=== PATIENT | male | born 1945 | race Caucasian/White ===

== ENCOUNTER 2017-11-29 13:30 | Outpatient (RCR) | payer MEDICARE, OTHER, SELFPAY | END 2017-12-06 23:59 | LOC: DC 13:30 | PROVIDERS: Family Provider Family Medicine; PCP Family Medicine; Visit Provider Orthopaedic Surgery | DX: E66.9 Obesity, unspecified (principal); E10.10 Type 1 diabetes mellitus with ketoacidosis without coma; Z68.42 Body mass index [BMI] 45.0-49.9, adult; Z71.3 Dietary counseling and surveillance | CPT/HCPCS: G0108; G0109 ==

== ENCOUNTER 2018-03-15 16:18 | Outpatient (RCR) | payer MEDICARE, OTHER, SELFPAY | END 2018-04-05 23:59 | LOC: DC 16:18 | PROVIDERS: Family Provider Family Medicine; PCP Family Medicine; Visit Provider Orthopaedic Surgery | DX: E66.9 Obesity, unspecified (principal); E10.10 Type 1 diabetes mellitus with ketoacidosis without coma; Z68.42 Body mass index [BMI] 45.0-49.9, adult; Z71.3 Dietary counseling and surveillance | CPT/HCPCS: G0109 ==

== ENCOUNTER → 2018-03-21 07:01 | Outpatient (CLI) | payer MEDICARE, OTHER, SELFPAY ==
[2018-03-21 10:20] LABS: Hematocrit 42.1 % (40-54); Hemoglobin 13.7 g/dl (13.0-16.5); Mean Corp Hgb Conc 32.5 g/gl (32-36); Mean Corpuscular Hgb 26.8 pg (27.0-32.0); Mean Corpuscular Volume 82.4 fL (80-94); Mean Platelet Vol. 9.5 fl (6.2-12.0); Platelet Count 186 K/mm3 (150-450); RBC Distribution Width CV 13.9 % (11.6-14.6); RBC Distribution Width SD 41.7 fl (35.1-43.9); Red Blood Count 5.11 M/mm3 (4.6-6.2); White Blood Count 6.2 K/mm3 (4.4-11.0)
[2018-03-21 10:26] LABS: Scan Indicated on CBC? Y/N NO
[2018-03-21 10:36] LABS: Protein, Urine (Random) 171.9 mg/dL (<11.9); Protein:Creat Ratio 1868 mg/g CRE (0-200)
[2018-03-21 10:46] LABS: Albumin, Serum 3.8 g/dL (3.2-5.0); BUN 22 mg/dL (7-18); BUN/Creat Ratio 21.4 RATIO (10-20); Calcium,Total 9.4 mg/dL (8.5-10.1); Chloride 100 mmol/L (98-107); Cholesterol 129 mg/dL (200); Creatinine, Serum 1.03 mg/dL (0.70-1.30); EST Glomerular Filtration Rate 76 mL/min (>60); Est Glom Filt Rate - Afr Amer 92 mL/min (>60); Glucose 211 mg/dL (74-106); High Density Lipoprotein 41 mg/dL; Phosphorus 3.4 mg/dL (2.5-4.9); Potassium 4.4 mmol/L (3.5-5.1); Sodium Level 137 mmol/L (136-145); Triglycerides 230 mg/dL; Very Low Density Lipoprotein 46 mg/dL (5-40)
[2018-03-21 10:47] LABS: Hemoglobin A1c 7.8 % (4.2-6.3)
[2018-03-21 11:53] LABS: PTHIN 24.6 pg/mL (18.4-80.1); Vitamin D,25 Hydroxy 37.4 ng/mL (29.95-100.01)
== END ==
PROVIDERS: Family Provider Family Medicine; PCP Family Medicine; Visit Provider Internal Medicine Nephrology
DX: E11.22 Type 2 diabetes mellitus with diabetic chronic kidney disease (principal); N18.2 Chronic kidney disease, stage 2 (mild); E55.9 Vitamin D deficiency, unspecified
CPT/HCPCS: 36415; 80061; 80069; 82306; 82570; 83036; 83735; 83970; 84156; 85027

== ENCOUNTER 2018-04-12 08:00 | Outpatient (RCR) | payer MEDICARE, OTHER, SELFPAY | END 2018-05-05 23:59 | LOC: DC 08:00 | PROVIDERS: Family Provider Family Medicine; PCP Family Medicine; Visit Provider Orthopaedic Surgery | DX: E66.9 Obesity, unspecified (principal); E10.10 Type 1 diabetes mellitus with ketoacidosis without coma; Z68.42 Body mass index [BMI] 45.0-49.9, adult; Z71.3 Dietary counseling and surveillance | CPT/HCPCS: G0109 ==

== ENCOUNTER → 2018-08-24 07:06 | Outpatient (CLI) | payer MEDICARE, OTHER, SELFPAY ==
[2018-08-24 10:52] LABS: Hemoglobin 13.5 g/dl (13.0-16.5); Mean Corp Hgb Conc 31.4 g/gl (32-36); Mean Corpuscular Hgb 26.2 pg (27.0-32.0); Mean Corpuscular Volume 83.3 fL (80-94); Mean Platelet Vol. 9.4 fl (6.2-12.0); Platelet Count 186 K/mm3 (150-450); RBC Distribution Width CV 14.5 % (11.6-14.6); RBC Distribution Width SD 44.2 fl (35.1-43.9); Red Blood Count 5.16 M/mm3 (4.6-6.2); White Blood Count 7.5 K/mm3 (4.4-11.0)
[2018-08-24 10:54] LABS: Scan Indicated on CBC? Y/N NO
[2018-08-24 11:03] LABS: Albumin, Serum 3.6 g/dL (3.2-5.0); BUN 20 mg/dL (7-18); BUN/Creat Ratio 23.6 RATIO (10-20); Calcium,Total 9.4 mg/dL (8.5-10.1); Chloride 101 mmol/L (98-107); Creatinine, Serum 0.85 mg/dL (0.70-1.30); EST Glomerular Filtration Rate 95 mL/min (>60); Est Glom Filt Rate - Afr Amer 115 mL/min (>60); Glucose 156 mg/dL (74-106); Magnesium 1.9 mg/dL (1.6-2.6); Phosphorus 3.6 mg/dL (2.5-4.9); Potassium 4.5 mmol/L (3.5-5.1); Sodium Level 138 mmol/L (136-145)
[2018-08-24 11:07] LABS: Protein, Urine (Random) 170.9 mg/dL (<11.9); Protein:Creat Ratio 2335 mg/g CRE (0-200)
[2018-08-24 11:08] LABS: Hemoglobin A1c 7.6 % (4.2-6.3); PTHIN 27.6 pg/mL (18.4-80.1)
[2018-08-24 11:09] LABS: Vitamin D,25 Hydroxy 36.6 ng/mL (29.95-100.01)
== END ==
PROVIDERS: Family Provider Family Medicine; PCP Family Medicine; Referring Provider Internal Medicine Nephrology; Visit Provider Internal Medicine Nephrology
DX: E11.22 Type 2 diabetes mellitus with diabetic chronic kidney disease (principal); N18.2 Chronic kidney disease, stage 2 (mild); E55.9 Vitamin D deficiency, unspecified; E83.42 Hypomagnesemia
CPT/HCPCS: 36415; 80069; 82306; 82570; 83036; 83735; 83970; 84156; 85027

== ENCOUNTER 2018-12-15 16:10 | Emergency (ER) | payer MEDICARE, OTHER, SELFPAY ==
[2018-12-15 16:10] VITALS: BP 146/67; PULSE 91; RESP 22; TEMP 36.2; O2SAT 93; BMI 41.8
[2018-12-15 16:13] VITALS: TEMP 36.3
--- NOTE | 2018-12-15 16:25 | EKG12_ITS ---
Test Reason : COUGH Blood Pressure : / mmHG Vent. Rate : 094 BPM Atrial Rate : 094 BPM P-R Int : 196 ms QRS Dur : 088 ms QT Int : 338 ms P-R-T Axes : 065 022 080 degrees QTc Int : 422 ms Normal sinus rhythm Normal ECG Confirmed by JAME FREGOSO, PETERSON ([id number]), book or script editor LUCIAN CARVALHO ([id number]) on 12/18/2018 8:31:51 AM Referred By: DC Confirmed By:PETERSON KILGORE MD
--- NOTE | 2018-12-15 16:25 | RAD_ITS ---
STUDY: X-RAY CHEST REASON FOR EXAM: Male, 73 years old. Coughing and congestion for one day TECHNIQUE: AP COMPARISON: None. FINDINGS: There is hyperinflation of the lungs consistent with chronic obstructive lung disease (COPD). There is no demonstrated pleural abnormality. Normal size heart. Normal mediastinum and radha. Normal visualized pulmonary arteries. There is atherosclerotic tortuosity of the aortic arch and descending thoracic aorta. Normal visualized thoracic spine. Normal visualized ribs, clavicles, and shoulders. There is no demonstrated abnormality of the visualized soft tissue structures of the upper abdomen. RAD/Chest 1 View (Portable) IMPRESSION: Nonacute portable x-ray examination of the chest. Suspect COPD. Electronically Signed: Carlito Robison MD at 16:53 EST , Service support ,
[2018-12-15 16:35] VITALS: O2SAT 93; O2SAT 95
[2018-12-15 16:40] VITALS: PULSE 102; RESP 22
[2018-12-15] MEDS: Ipratropium/Albuterol Sulfate 3 ML AMPUL.NEB INHALATION (16:40)
[2018-12-15 16:41] LABS: Absolute Lymphocyte Count 1.87 X10^3/ul (0.83-4.51); Absolute Neutrophil Count 7.4 X10^3/uL (2.0-7.7); Basophil# 0.02 X10^3/uL; Basophil% 0.2 % (0-1); Eosinophil# 0.29 X10^3/uL; Eosinophils% 2.8 % (0-5); Hematocrit 43.6 % (40-54); Hemoglobin 13.8 g/dl (13.0-16.5); Lymphocyte # 1.87 X10^3/ul (4.0); Lymphocyte % 17.9 % (19-41); Mean Corp Hgb Conc 31.7 g/gl (32-36); Mean Corpuscular Hgb 26.9 pg (27.0-32.0); Mean Platelet Vol. 9.2 fl (6.2-12.0); Monocyte# 0.77 X10^3/uL; Monocyte% 7.4 % (0-10); Neutrophil # 7.42 X10^3/uL (2.7-7.7); POSITIVE COUNT NO; POSITIVE DIFFERENTIAL NO; POSITIVE MORPHOLOGY NO; Platelet Count 193 K/mm3 (150-450); RBC Distribution Width CV 13.9 % (11.6-14.6); RBC Distribution Width SD 43.4 fl (35.1-43.9); Red Blood Count 5.13 M/mm3 (4.6-6.2); White Blood Count 10.4 K/mm3 (4.4-11.0)
[2018-12-15 17:03] LABS: Anion Gap 10 (5-15); BUN 27 mg/dL (7-18); Calcium,Total 8.6 mg/dL (8.5-10.1); Chloride 105 mmol/L (98-107); Creatinine, Serum 1.08 mg/dL (0.70-1.30); EST Glomerular Filtration Rate 72 mL/min (>60); Est Glom Filt Rate - Afr Amer 87 mL/min (>60); Estimated Creatinine Clearance 66.82 ml/min; Glucose 193 mg/dL (74-106); Potassium 4.4 mmol/L (3.5-5.1); Sodium Level 138 mmol/L (136-145)
[2018-12-15 17:12] VITALS: BP 153/68; PULSE 93; RESP 14; TEMP 36.9; O2SAT 95
--- NOTE | 2018-12-15 17:17 | ED.VISSUMM ---
- ER Visit Summary Date of Service: 12/15/18 Chief Complaint: Cough History of Present Illness: The patient is a 73 M with cough that started today. Associated with congestion and some sputum. He has some mild shortness of breath. He is a former smoker and has a history of bronchitis. He has required hospitalization for bronchitis in the past. He also has diabetes, hyperlipidemia, sleep apnea, and other noncontributory chronic disease. He is not currently on prednisone or antibiotics. Physical Examination: Afebrile and vital signs unremarkable. Alert and oriented. No acute distress. Sitting, moving, breathing comfortably. Heart regular rate and rhythm. Lungs show diminished sounds throughout all ordaz. Extremities nontender with no edema. Skin appears normal. Test Results: X-ray showed chronic changes, COPD. EKG showed sinus rhythm at a rate of 94. CBC normal. Glucose 193 and BUN 27. Troponin normal. Emergency Department Course and Treatment: Patient has signs and symptoms of bronchitis. Workup is unremarkable. We will treat as bronchitis. Prescription for doxycycline. Follow-up with primary care for recheck. Return right away if worse. Treatment Plan: As above Disposition: Discharge Impression: 1. Acute bronchitis This note was generated with [employer] software. It may contain incorrect words, spelling, and punctuation that were not noted in review of the chart prior to signing ED Disposition - Plan for ED Patient: Referrals: Getachew Lowery MD [Primary Care Provider] -
--- NOTE | 2018-12-15 17:19 | ED.DEP ---
ED Disposition - Plan for ED Patient: Instructions: ED COPD Flare Prescriptions: Levofloxacin [Levaquin] 750 mg PO DAILY #5 tab Levofloxacin [Levaquin] 750 mg PO DAILY #5 tab Referrals: Getachew Lowery MD [Primary Care Provider] -
[2018-12-15 17:53] VITALS: PULSE 92; RESP 17; O2SAT 93
== END 2018-12-15 17:54 | disposition home or self-care (01) ==
PROVIDERS: Emergency Provider Emergency Medicine; Family Provider Family Medicine; PCP Family Medicine
DX: J44.0 Chronic obstructive pulmonary disease with (acute) lower respiratory infection (principal); J20.9 Acute bronchitis, unspecified; E11.9 Type 2 diabetes mellitus without complications; E78.5 Hyperlipidemia, unspecified; N40.0 Benign prostatic hyperplasia without lower urinary tract symptoms; G47.33 Obstructive sleep apnea (adult) (pediatric); K21.9 Gastro-esophageal reflux disease without esophagitis; Z79.82 Long term (current) use of aspirin; Z79.4 Long term (current) use of insulin; Z79.899 Other long term (current) drug therapy; Z87.891 Personal history of nicotine dependence
CPT/HCPCS: 71045; 80048; 84484; 85025; 93005; 94640; 99284; A4216

== ENCOUNTER → 2019-02-27 07:04 | Outpatient (CLI) | payer MEDICARE, OTHER, SELFPAY ==
[2019-02-27 10:32] LABS: Hematocrit 43.8 % (40-54); Hemoglobin 14.1 g/dl (13.0-16.5); Mean Corp Hgb Conc 32.2 g/gl (32-36); Mean Corpuscular Volume 83.7 fL (80-94); Mean Platelet Vol. 9.6 fl (6.2-12.0); Platelet Count 200 K/mm3 (150-450); RBC Distribution Width CV 13.9 % (11.6-14.6); RBC Distribution Width SD 42.7 fl (35.1-43.9); Red Blood Count 5.23 M/mm3 (4.6-6.2); White Blood Count 7.3 K/mm3 (4.4-11.0)
[2019-02-27 10:36] LABS: Scan Indicated on CBC? Y/N NO
[2019-02-27 10:42] LABS: Albumin, Serum 3.6 g/dL (3.2-5.0); BUN 18 mg/dL (7-18); Calcium,Total 9.5 mg/dL (8.5-10.1); Chloride 100 mmol/L (98-107); Creatinine, Serum 0.86 mg/dL (0.70-1.30); EST Glomerular Filtration Rate 93 mL/min (>60); Est Glom Filt Rate - Afr Amer 113 mL/min (>60); Glucose 179 mg/dL (74-106); Phosphorus 3.5 mg/dL (2.5-4.9); Potassium 4.4 mmol/L (3.5-5.1); Sodium Level 138 mmol/L (136-145)
[2019-02-27 10:49] LABS: Cholesterol 144 mg/dL (200); High Density Lipoprotein 44 mg/dL; Triglycerides 265 mg/dL; Very Low Density Lipoprotein 53 mg/dL (5-40)
[2019-02-27 10:54] LABS: Hemoglobin A1c 7.7 % (4.2-6.3)
[2019-02-27 10:57] LABS: Protein, Urine (Random) 512.2 mg/dL (<11.9); Protein:Creat Ratio 4573 mg/g CRE (0-200)
== END ==
PROVIDERS: Family Provider Family Medicine; PCP Family Medicine; Referring Provider Internal Medicine Nephrology; Visit Provider Internal Medicine Nephrology
DX: I12.9 Hypertensive chronic kidney disease with stage 1 through stage 4 chronic kidney disease, or unspecified chronic kidney disease (principal); N18.2 Chronic kidney disease, stage 2 (mild); E11.22 Type 2 diabetes mellitus with diabetic chronic kidney disease; E78.5 Hyperlipidemia, unspecified
CPT/HCPCS: 36415; 80061; 80069; 82570; 83036; 84156; 85027

== ENCOUNTER → 2019-09-04 07:05 | Outpatient (CLI) | payer MEDICARE, OTHER, SELFPAY ==
[2019-09-04 09:54] LABS: Absolute Lymphocyte Count 1.46 X10^3/uL (0.83-4.51); Absolute Neutrophil Count 5.6 X10^3/uL (2.0-7.7); Basophil# 0.07 X10^3/uL; Basophil% 0.9 % (0-1); Eosinophil# 0.32 X10^3/uL; Eosinophils% 3.9 % (0-5); Hematocrit 45.3 % (40-54); Hemoglobin 14.3 g/dL (13.0-16.5); Lymphocyte # 1.46 X10^3/ul (4.0); Lymphocyte % 17.8 % (19-41); Mean Corp Hgb Conc 31.6 g/dL (32-36); Mean Corpuscular Hgb 26.7 pg (27.0-32.0); Mean Corpuscular Volume 84.7 fL (80-94); Mean Platelet Vol. 9.4 fl (6.2-12.0); Monocyte# 0.63 X10^3/uL; Monocyte% 7.7 % (0-10); NRBC Flagged by Analyzer 0 % (0-5); Neutrophil # 5.59 X10^3/uL (2.7-7.7); Neutrophil % 68.4 % (47-70); Platelet Count 211 K/mm3 (150-450); RBC Distribution Width CV 13.7 % (11.6-14.6); RBC Distribution Width SD 42.1 fl (35.1-43.9); Red Blood Count 5.35 M/mm3 (4.6-6.2); White Blood Count 8.2 K/mm3 (4.4-11.0)
[2019-09-04 10:27] LABS: Vitamin D,25 Hydroxy 46.3 ng/mL (29.95-100.01)
[2019-09-04 10:28] LABS: PTHIN 28.3 pg/mL (18.4-80.1)
[2019-09-04 10:29] LABS: Albumin, Serum 3.4 g/dL (3.2-5.0); BUN 22 mg/dL (7-18); BUN/Creat Ratio 25.2 RATIO (10-20); Calcium,Total 9.4 mg/dL (8.5-10.1); Chloride 100 mmol/L (98-107); Creatinine, Serum 0.87 mg/dL (0.70-1.30); EST Glomerular Filtration Rate 91 mL/min (>60); Est Glom Filt Rate - Afr Amer 110 mL/min (>60); Glucose 214 mg/dL (74-106); Magnesium 1.9 mg/dL (1.6-2.6); Phosphorus 3.6 mg/dL (2.5-4.9); Sodium Level 137 mmol/L (136-145)
[2019-09-04 10:45] LABS: Protein, Urine (Random) 524.2 mg/dL (<11.9); Protein:Creat Ratio 4809 mg/g CRE (0-200)
== END ==
PROVIDERS: Family Provider Family Medicine; PCP Family Medicine; Referring Provider Internal Medicine Nephrology; Visit Provider Internal Medicine Nephrology
DX: N18.2 Chronic kidney disease, stage 2 (mild) (principal); E55.9 Vitamin D deficiency, unspecified; Z13.0 Encounter for screening for diseases of the blood and blood-forming organs and certain disorders involving the immune mechanism
CPT/HCPCS: 36415; 80069; 82306; 82570; 83735; 83970; 84156; 85025

== ENCOUNTER → 2019-10-01 07:01 | Outpatient (CLI) | payer MEDICARE, OTHER, SELFPAY ==
[2019-10-01 10:40] LABS: AST(SGOT) 22 U/L (15-37); Alanine Aminotransfer ALT/SGPT 50 U/L (16-61); Albumin, Serum 3.7 g/dL (3.2-5.0); Alkaline Phosphatase 77 U/L (45-117); Anion Gap 8 (5-15); BUN 24 mg/dL (7-18); BUN/Creat Ratio 26.5 RATIO (10-20); Calcium,Total 9.5 mg/dL (8.5-10.1); Chloride 103 mmol/L (98-107); Cholesterol 141 mg/dL (200); Creatinine, Serum 0.91 mg/dL (0.70-1.30); EST Glomerular Filtration Rate 87 mL/min (>60); Est Glom Filt Rate - Afr Amer 106 mL/min (>60); Globulin 3.8 g/dL (2.2-4.2); Glucose 190 mg/dL (74-106); High Density Lipoprotein 46 mg/dL; Potassium 4.4 mmol/L (3.5-5.1); Protein, Total 7.5 g/dL (6.4-8.2); Sodium Level 138 mmol/L (136-145); T4 Free Direct 1.14 ng/dL (0.76-1.46); Thyroid Stim Hormone (TSH) 1.21 uIU/mL (0.358-3.74); Triglycerides 247 mg/dL; Very Low Density Lipoprotein 49 mg/dL (5-40)
[2019-10-01 10:41] LABS: Vitamin D,25 Hydroxy 47.9 ng/mL (29.95-100.01)
[2019-10-03 11:20] LABS: Anti-Thyroglobulin AB < 1.0 IU/mL (0.0-0.9); Thyroglobulin, Serum Qt. 23.4 ng/mL (1.4-29.2); Thyroid Peroxidase AB 10 IU/mL (0-34)
== END ==
PROVIDERS: Family Provider Family Medicine; PCP Family Medicine; Referring Provider Family Medicine; Visit Provider Family Medicine
DX: E11.9 Type 2 diabetes mellitus without complications (principal); I10 Essential (primary) hypertension; E78.5 Hyperlipidemia, unspecified; E01.0 Iodine-deficiency related diffuse (endemic) goiter; E55.9 Vitamin D deficiency, unspecified; E66.01 Morbid (severe) obesity due to excess calories
CPT/HCPCS: 36415; 80053; 80061; 82306; 83036; 84432; 84439; 84443; 86376; 86800

== ENCOUNTER → 2019-10-14 11:50 | Outpatient (CLI) | payer MEDICARE, OTHER, SELFPAY ==
--- NOTE | 2019-10-14 11:53 | US_ITS ---
STUDY: THYROID ULTRASOUND REASON FOR EXAM: Male, 74 years old. Thyromegaly. TECHNIQUE: Ultrasound evaluation of the thyroid was performed with real-time and static shi-scale imaging. COMPARISON: None. FINDINGS: RIGHT LOBE: The right lobe of the thyroid gland measures 4.8 cm x 2.8 cm x 2.0 cm. There is a homogeneous echotexture. There is a 5 mm x 6 mm x 5 mm cyst in the mid portion of the right lobe. Adjacent to this, there is a 1 cm x 1 cm x 1 cm cyst. LEFT LOBE: The left lobe of the thyroid gland measures 4.4 cm x 1.7 cm x 1.9 cm. There is a homogeneous echotexture. There is a 7 mm x 6 mm x 3 mm cyst with the low-level echoes within it. There is also evidence of a 6 mm x 8 mm x 5 mm well-defined hypoechoic nodule in the midportion of the left lobe. ISTHMUS: The isthmus measures 3.0 mm. The regional lymph nodes are normal. US/Thyroid IMPRESSION: 2 cysts in the right lobe of the thyroid. 6 mm x 8 mm x 5 mm hypoechoic solid nodule in the midportion of the left lobe as well as a small cyst. Electronically Signed: Stanley Mcdonnell, at 9:24 EST , Service support ,
--- NOTE | 2019-10-14 12:25 | ECHOCS_ITS ---
Reason For Study: Murmur Procedure This was a 2D Doppler, Color Flow transthoracic echocardiogram. The study was technically difficult. Contrast injection was performed. Exam performed in department. Left Ventricle Normal LV size. Left ventricular systolic function is normal. The estimated ejection fraction is 65 %. Stage 1 diastolic dysfunction. No regional wall motion abnormalities noted. Right Ventricle Normal RV size. Normal systolic function. Atria Normal left atrium. Normal right atrium. Mitral Valve Normal mitral valve. Tricuspid Valve Normal tricuspid valve. Aortic Valve Trisinus/trileaflet aortic valve. Moderate focal aortic valve calcification. Peak aortic valve gradient 71 mmHg. Mean aortic valve gradient 45 mmHg. Pulmonic Valve The pulmonic valve is not well visualized. Great Vessels Normal aortic root. The pulmonary artery is normal size. Normal inferior vena cava. Pericardium/Pleural No pericardial effusion. Medication Diluted definity 4ml given slow IV push to enhance endocardial definition. MMode/2D Measurements & Calculations LVIDd: 4.4 cm IVSd: 1.7 cm LVOT diam: 2.0 cm LVIDs: 2.9 cm LVPWd: 1.6 cm RVDd: 3.9 cm FS: 34.0 % LVOT area: 3.1 cm2 Ao root diam: 3.0 cm LAV(MOD-bp): 29.8 ml LVAd ap4: 35.4 cm2 LAV(MOD-bp) Indexed: 11.8 ml/m2 EDV(MOD-sp4): 110.7 ml LAV(MOD-sp2): 30.3 ml EDV(sp4-el): 111.9 ml LAV(MOD-sp4): 28.6 ml LVAs ap4: 17.2 cm2 ESV(MOD-sp4): 36.7 ml ESV(sp4-el): 36.4 ml EF(MOD-sp4): 66.9 % EF(sp4-el): 67.5 % SV(MOD-sp4): 74.1 ml SV(sp4-el): 75.5 ml LA A4 area: 13.4 cm2 LA dimension(2D): 3.4 cm RA A4 area: 12.5 cm2 Doppler Measurements & Calculations MV E max rik: 68.6 cm/sec Lat Peak E' Rik: 5.9 cm/sec Med Peak E' Rik: 5.6 cm/sec MV A max rik: 104.7 cm/sec E/E' lat: 11.6 E/E' med: 12.2 MV E/A: 0.65 Ao V2 max: 422.6 cm/sec AI max rik: 387.0 cm/sec LV V1 max: 133.0 cm/sec Ao max P.4 mmHg AI max P.9 mmHg LV V1 max P.1 mmHg Ao V2 mean: 319.2 cm/sec LV V1 mean P.3 mmHg Ao mean P.6 mmHg AI dec slope: 193.7 cm/sec2 LV V1 mean: 99.9 cm/sec Ao V2 VTI: 74.3 cm AI P1/2t: 585.1 msec LV V1 VTI: 23.9 cm KOKO(I,D): 1.00 cm2 KOKO(V,D): 0.97 cm2 SV(LVOT): 73.9 ml Interpretation Summary Normal LV size. Left ventricular systolic function is normal. The estimated ejection fraction is 65 %. Moderate focal aortic valve calcification. Mean aortic valve gradient 45 mmHg. Stage 1 diastolic dysfunction. Contrast injection was performed. Ordering Physician: Getachew Watson Referring Physician: Getachew Watson Performed By: Yvonne Bearden RDCS, RVT
--- NOTE | 2019-10-14 12:25 | CDU_ITS ---
Reason For Study: CAROTID STENOSIS Rt. Velocities/BP Lt. Velocities/BP Prox CCA 102.1/12.6 cm/sec. Prox CCA 87.4/12.3 cm/sec. Mid CCA 85.8/10.9 cm/sec. Mid CCA 85.5/12.9 cm/sec. Dist CCA 76.0/12.2 cm/sec. Dist CCA 94.2/26.0 cm/sec. Prox ICA 80.9/22.0 cm/sec. Prox ICA 72.8/14.8 cm/sec. Mid ICA 91.6/25.3 cm/sec. Mid ICA 62.7/16.3 cm/sec. Dist ICA 87.4/24.0 cm/sec. Dist ICA 68.5/20.6 cm/sec. Rt. ICA/CCA = 91.6/102.1=0.9. Lt. ICA/CCA = 72.8/94.2=0.8. Prox ECA 194.5/5.7 cm/sec. Prox ECA 110.1/0.0 cm/sec. Rt. Vert. 62.7/12.5 cm/sec. Lt. Vert. 48.1/9.4 cm/sec. Right Extracranial There is intimal thickening but no significant atherosclerotic plaque noted in the right common carotid artery. There is heterogeneous, irregular atherosclerotic plaque noted in the right internal carotid artery. There is heterogeneous, smooth atherosclerotic plaque noted in the right external carotid artery. Antegrade flow is noted in the right vertebral artery. There is heterogeneous, irregular atherosclerotic plaque noted in the right bulb. Left Extracranial There is intimal thickening but no significant atherosclerotic plaque noted in the left common carotid artery. There is heterogeneous, smooth atherosclerotic plaque noted in the left internal carotid artery. The distal left internal carotid artery is not well visualized. There is no significant atherosclerotic plaque noted in the left external carotid artery. Antegrade flow is noted in the left vertebral artery. There is heterogeneous, irregular atherosclerotic plaque noted in the left bulb. Procedure Carotid Duplex [id number]. The study was technically difficult. PT had difficulty being still for exam with sinus drainage. Interpretation Summary Mild (<50%) stenosis right extracranial internal carotid. Mild (<50%) stenosis left extracranial internal carotid. Flow within the vertebral arteries is antegrade bilaterally. Heterogeneous, irregular atherosclerotic plaque is noted in the carotid bulbs bilaterally, which does not appear to be hemodynamically significant. Ordering Physician: Getachew Watson Referring Physician: Getachew Watson Performed By: Funmilayo Garcia, RUTH, RVT
== END ==
PROVIDERS: Family Provider Family Medicine; PCP Family Medicine; Referring Provider Family Medicine; Visit Provider Family Medicine
DX: I65.23 Occlusion and stenosis of bilateral carotid arteries (principal); E01.0 Iodine-deficiency related diffuse (endemic) goiter; R01.1 Cardiac murmur, unspecified
CPT/HCPCS: 76536; 93306; 93880; Q9957; A4216; C8929

== ENCOUNTER → 2019-10-17 13:36 | Outpatient (CLI) | payer MEDICARE, OTHER, SELFPAY ==
--- NOTE | 2019-10-17 13:37 | US_ITS ---
STUDY: ULTRASOUND - URINARY BLADDER REASON FOR EXAM: Male, 74 years old. Urinary retention. TECHNIQUE: Ultrasound evaluation of the urinary bladder was performed with real-time and static shi-scale imaging. COMPARISON: None. FINDINGS: There is no right UVJ calculus. There is a visualized right ureteral jet. There is no left UVJ calculus. There is a visualized left ureteral jet. The distended volume of the urinary bladder is 206 ml. The empty volume of the urinary bladder is 28 ml. The bladder wall measures 5 mm. There is no demonstrated bladder wall mass lesion. There are no demonstrated bladder calculi. US/Post Void Residual Bladder IMPRESSION: Post void residual of 28 mL. Mild bladder wall thickening. Electronically Signed: Gita Taveras MD at 0:04 EST , Service support ,
== END ==
PROVIDERS: Family Provider Family Medicine; PCP Family Medicine; Referring Provider Family Medicine; Visit Provider Family Medicine
DX: R33.9 Retention of urine, unspecified (principal)
CPT/HCPCS: 51798

== ENCOUNTER → 2020-01-17 07:06 | Outpatient (CLI) | payer MEDICARE, OTHER, SELFPAY ==
[2020-01-17 10:04] LABS: Absolute Lymphocyte Count 1.79 X10^3/uL (0.83-4.51); Absolute Neutrophil Count 4.5 X10^3/uL (2.0-7.7); Basophil# 0.05 X10^3/uL; Basophil% 0.7 % (0-1); Eosinophil# 0.27 X10^3/uL; Eosinophils% 3.7 % (0-5); Hematocrit 44.9 % (40-54); Lymphocyte # 1.79 X10^3/ul (4.0); Lymphocyte % 24.3 % (19-41); Mean Corp Hgb Conc 31.2 g/dL (32-36); Mean Corpuscular Hgb 26.5 pg (27.0-32.0); Mean Platelet Vol. 9.9 fl (6.2-12.0); Monocyte% 9.5 % (0-10); NRBC Flagged by Analyzer 0 % (0-5); Neutrophil # 4.48 X10^3/uL (2.7-7.7); Neutrophil % 60.8 % (47-70); Platelet Count 228 K/mm3 (150-450); RBC Distribution Width CV 13.9 % (11.6-14.6); RBC Distribution Width SD 42.9 fl (35.1-43.9); Red Blood Count 5.28 M/mm3 (4.6-6.2); White Blood Count 7.4 K/mm3 (4.4-11.0)
[2020-01-17 10:45] LABS: Hemoglobin A1c 7.8 % (4.2-6.3)
[2020-01-17 11:13] LABS: ALB/GLOB Ratio 0.9 RATIO (0.9-2.4); AST(SGOT) 31 U/L (15-37); Alanine Aminotransfer ALT/SGPT 63 U/L (16-61); Albumin, Serum 3.6 g/dL (3.2-5.0); Alkaline Phosphatase 72 U/L (45-117); Anion Gap 7 (5-15); BUN 20 mg/dL (7-18); BUN/Creat Ratio 22.5 RATIO (10-20); Calcium,Total 9.8 mg/dL (8.5-10.1); Chloride 102 mmol/L (98-107); Cholesterol 142 mg/dL (200); Creatinine, Serum 0.89 mg/dL (0.70-1.30); EST Glomerular Filtration Rate 89 mL/min (>60); Est Glom Filt Rate - Afr Amer 108 mL/min (>60); Glucose 145 mg/dL (74-106); High Density Lipoprotein 41 mg/dL; Magnesium 1.9 mg/dL (1.6-2.6); Potassium 4.4 mmol/L (3.5-5.1); Protein, Total 7.6 g/dL (6.4-8.2); Sodium Level 136 mmol/L (136-145); Triglycerides 246 mg/dL; Very Low Density Lipoprotein 49 mg/dL (5-40)
[2020-01-18 08:21] LABS: Vitamin D,25 Hydroxy 54.9 ng/mL
== END ==
PROVIDERS: PCP Family Medicine; Referring Provider Family Medicine; Visit Provider Family Medicine
DX: E11.9 Type 2 diabetes mellitus without complications (principal); I10 Essential (primary) hypertension; E78.5 Hyperlipidemia, unspecified; E83.42 Hypomagnesemia; E55.9 Vitamin D deficiency, unspecified
CPT/HCPCS: 36415; 80053; 80061; 82306; 83036; 83735; 85025

== ENCOUNTER → 2020-04-21 07:01 | Outpatient (CLI) | payer MEDICARE, OTHER, SELFPAY ==
[2020-02-08 10:29] VITALS: BMI 41.8
[2020-04-21 10:09] LABS: Hematocrit 44.7 % (40-54); Hemoglobin 13.9 g/dL (13.0-16.5); Mean Corp Hgb Conc 31.1 g/dL (32-36); Mean Corpuscular Hgb 26.7 pg (27.0-32.0); Mean Corpuscular Volume 85.8 fL (80-94); Mean Platelet Vol. 9.7 fl (6.2-12.0); Platelet Count 243 K/mm3 (150-450); RBC Distribution Width CV 14.5 % (11.6-14.6); RBC Distribution Width SD 45.1 fl (35.1-43.9); Red Blood Count 5.21 M/mm3 (4.6-6.2); White Blood Count 8.8 K/mm3 (4.4-11.0)
[2020-04-21 10:22] LABS: PTHIN 13.9 pg/mL (18.4-80.1)
[2020-04-21 10:23] LABS: Albumin, Serum 3.7 g/dL (3.2-5.0); BUN 34 mg/dL (7-18); BUN/Creat Ratio 32.7 RATIO (10-20); Calcium,Total 9.6 mg/dL (8.5-10.1); Chloride 106 mmol/L (98-107); Creatinine, Serum 1.04 mg/dL (0.70-1.30); EST Glomerular Filtration Rate 75 mL/min (>60); Est Glom Filt Rate - Afr Amer 90 mL/min (>60); Glucose 160 mg/dL (74-106); Phosphorus 4.4 mg/dL (2.5-4.9); Potassium 4.2 mmol/L (3.5-5.1); Sodium Level 138 mmol/L (136-145)
[2020-04-21 10:26] LABS: Vitamin D,25 Hydroxy 52.9 ng/mL
[2020-04-21 10:35] LABS: Protein, Urine (Random) 67.1 mg/dL (<11.9); Protein:Creat Ratio 996 mg/g CRE (0-200)
== END ==
PROVIDERS: PCP Family Medicine; Referring Provider Internal Medicine Nephrology; Visit Provider Internal Medicine Nephrology
DX: N18.2 Chronic kidney disease, stage 2 (mild) (principal); E55.9 Vitamin D deficiency, unspecified; E83.42 Hypomagnesemia; Z13.0 Encounter for screening for diseases of the blood and blood-forming organs and certain disorders involving the immune mechanism
CPT/HCPCS: 36415; 80069; 82306; 82570; 83735; 83970; 84156; 85027

== ENCOUNTER → 2020-05-19 07:07 | Outpatient (CLI) | payer MEDICARE, OTHER, SELFPAY ==
[2020-02-08 10:29] VITALS: BMI 41.8
[2020-05-19 09:54] LABS: Absolute Lymphocyte Count 1.66 X10^3/uL (0.83-4.51); Absolute Neutrophil Count 5.3 X10^3/uL (2.0-7.7); Basophil# 0.04 X10^3/uL; Basophil% 0.5 % (0-1); Eosinophil# 0.28 X10^3/uL; Eosinophils% 3.5 % (0-5); Hematocrit 44.8 % (40-54); Hemoglobin 13.8 g/dL (13.0-16.5); Lymphocyte # 1.66 X10^3/ul (4.0); Lymphocyte % 20.6 % (19-41); Mean Corp Hgb Conc 30.8 g/dL (32-36); Mean Corpuscular Hgb 26.6 pg (27.0-32.0); Mean Corpuscular Volume 86.3 fL (80-94); Mean Platelet Vol. 9.9 fl (6.2-12.0); Monocyte# 0.63 X10^3/uL; Monocyte% 7.8 % (0-10); NRBC Flagged by Analyzer 0 % (0-5); Neutrophil # 5.33 X10^3/uL (2.7-7.7); Neutrophil % 66.1 % (47-70); Platelet Count 228 K/mm3 (150-450); RBC Distribution Width SD 43.8 fl (35.1-43.9); Red Blood Count 5.19 M/mm3 (4.6-6.2); White Blood Count 8.1 K/mm3 (4.4-11.0)
[2020-05-19 10:07] LABS: Albumin, Serum 3.6 g/dL (3.2-5.0); BUN 19 mg/dL (7-18); BUN/Creat Ratio 20.3 RATIO (10-20); Creatinine, Serum 0.94 mg/dL (0.70-1.30); EST Glomerular Filtration Rate 84 mL/min (>60); Est Glom Filt Rate - Afr Amer 102 mL/min (>60); Glucose 166 mg/dL (74-106); Protein, Total 7.6 g/dL (6.4-8.2); Vitamin D,25 Hydroxy 57.1 ng/mL
[2020-05-19 10:08] LABS: ALB/GLOB Ratio 0.9 RATIO (0.9-2.4); AST(SGOT) 28 U/L (15-37); Alanine Aminotransfer ALT/SGPT 61 U/L (16-61); Alkaline Phosphatase 68 U/L (45-117); Anion Gap 9 (5-15); Calcium,Total 9.4 mg/dL (8.5-10.1); Chloride 102 mmol/L (98-107); Cholesterol 135 mg/dL (200); High Density Lipoprotein 42 mg/dL; Potassium 4.1 mmol/L (3.5-5.1); Sodium Level 137 mmol/L (136-145); Triglycerides 228 mg/dL; Very Low Density Lipoprotein 46 mg/dL (5-40)
[2020-05-19 11:00] LABS: Microalbumin:Creatinine Ratio 1405.3 mg/g CRE (<30 mg/g CRE)
[2020-05-19 11:52] LABS: Hemoglobin A1c 6.8 % (3.8-5.6)
== END ==
PROVIDERS: PCP Family Medicine; Referring Provider Family Medicine; Visit Provider Family Medicine
DX: E11.9 Type 2 diabetes mellitus without complications (principal); E78.5 Hyperlipidemia, unspecified; E83.42 Hypomagnesemia; E55.9 Vitamin D deficiency, unspecified
CPT/HCPCS: 36415; 80053; 80061; 82043; 82306; 82570; 83036; 83735; 85025

== ENCOUNTER → 2020-09-01 | Outpatient (CLI) | payer MEDICARE, OTHER, SELFPAY ==
[2020-02-08 10:29] VITALS: BMI 41.8
== END | disposition home or self-care (01) ==
PROVIDERS: Visit Provider Family Medicine
DX: B34.9 Viral infection, unspecified (principal)
CPT/HCPCS: 87635; U0003

== ENCOUNTER → 2020-10-13 07:04 | Outpatient (CLI) | payer MEDICARE, OTHER, SELFPAY ==
[2020-02-08 10:29] VITALS: BMI 41.8
[2020-10-13 09:44] LABS: Absolute Lymphocyte Count 1.53 X10^3/uL (0.83-4.51); Absolute Neutrophil Count 5.4 X10^3/uL (2.0-7.7); Basophil# 0.05 X10^3/uL; Basophil% 0.6 % (0-1); Eosinophil# 0.22 X10^3/uL; Eosinophils% 2.8 % (0-5); Hematocrit 44.8 % (40-54); Lymphocyte # 1.53 X10^3/ul (4.0); Lymphocyte % 19.4 % (19-41); Mean Corp Hgb Conc 31.3 g/dL (32-36); Mean Corpuscular Hgb 26.9 pg (27.0-32.0); Mean Corpuscular Volume 86.2 fL (80-94); Mean Platelet Vol. 9.6 fl (6.2-12.0); Monocyte# 0.67 X10^3/uL; Monocyte% 8.5 % (0-10); NRBC Flagged by Analyzer 0 % (0-5); Neutrophil # 5.36 X10^3/uL (2.7-7.7); Neutrophil % 67.9 % (47-70); Platelet Count 216 K/mm3 (150-450); RBC Distribution Width CV 13.7 % (11.6-14.6); RBC Distribution Width SD 43.6 fl (35.1-43.9); White Blood Count 7.9 K/mm3 (4.4-11.0)
[2020-10-13 10:03] LABS: Hemoglobin A1c 6.7 % (3.8-5.6)
[2020-10-13 10:24] LABS: ALB/GLOB Ratio 0.9 RATIO (0.9-2.4); AST(SGOT) 20 U/L (15-37); Alanine Aminotransfer ALT/SGPT 48 U/L (16-61); Albumin, Serum 3.5 g/dL (3.2-5.0); Alkaline Phosphatase 66 U/L (45-117); Anion Gap 5 (5-15); BUN 20 mg/dL (7-18); BUN/Creat Ratio 21.7 RATIO (10-20); Calcium,Total 8.9 mg/dL (8.5-10.1); Chloride 104 mmol/L (98-107); Cholesterol 141 mg/dL (200); Creatinine, Serum 0.92 mg/dL (0.70-1.30); EST Glomerular Filtration Rate 86 mL/min (>60); Est Glom Filt Rate - Afr Amer 104 mL/min (>60); Glucose 144 mg/dL (74-106); High Density Lipoprotein 43 mg/dL; Magnesium 2.1 mg/dL (1.6-2.6); PSA,Total - Annual Screen 0.07 ng/mL (0.00-4.00); Phosphorus 3.4 mg/dL (2.5-4.9); Potassium 4.5 mmol/L (3.5-5.1); Protein, Total 7.5 g/dL (6.4-8.2); Sodium Level 138 mmol/L (136-145); Triglycerides 252 mg/dL; Very Low Density Lipoprotein 50 mg/dL (5-40)
[2020-10-13 10:25] LABS: Microalbumin:Creatinine Ratio 1854.8 mg/g CRE (<30 mg/g CRE); Protein, Urine (Random) 242.2 mg/dL (<11.9); Protein:Creat Ratio 1953 mg/g CRE (0-200)
[2020-10-13 11:40] LABS: Vitamin D,25 Hydroxy 37.7 ng/mL
[2020-10-13 12:31] LABS: PTHIN 52.9 pg/mL (18.4-80.1)
== END ==
PROVIDERS: PCP Family Medicine; Referring Provider Family Medicine; Visit Provider Family Medicine
DX: I12.9 Hypertensive chronic kidney disease with stage 1 through stage 4 chronic kidney disease, or unspecified chronic kidney disease (principal); E11.22 Type 2 diabetes mellitus with diabetic chronic kidney disease; N18.2 Chronic kidney disease, stage 2 (mild); E78.5 Hyperlipidemia, unspecified; E83.42 Hypomagnesemia; E55.9 Vitamin D deficiency, unspecified; Z12.5 Encounter for screening for malignant neoplasm of prostate
CPT/HCPCS: 36415; 80053; 80061; 82043; 82306; 82570; 83036; 83735; 83970; 84100; 84153; 84156; 85025; G0103

== ENCOUNTER → 2020-10-26 08:59 | Outpatient (CLI) | payer MEDICARE, OTHER, SELFPAY ==
[2020-02-08 10:29] VITALS: BMI 41.8
--- NOTE | 2020-10-26 09:02 | RAD_ITS ---
STUDY: X-RAY - RIGHT KNEE REASON FOR EXAM: Male, 75 years old. Knee pain mostly in the left TECHNIQUE: 4 view(s) of the knee. COMPARISON: None. FINDINGS: Normal visualized distal femur. Normal visualized proximal tibia and fibula. Normal proximal tibiofibular articulation. There is mild degenerative arthrosis of the medial femorotibial compartment. Normal lateral femorotibial compartment. Normal patellofemoral articulation. Small joint effusion. Atherosclerotic vascular calcification. Calcification of the medial meniscus. RAD/Knee 3 Views IMPRESSION: Degenerative arthrosis. Electronically Signed: Stanley Mcdonnell, at 15:52 EST , Service support ,
--- NOTE | 2020-10-26 09:02 | RAD_ITS ---
STUDY: X-RAY - LEFT KNEE REASON FOR EXAM: Male, 75 years old patient with left-sided knee pain. TECHNIQUE: 3 view(s) of the knee. COMPARISON: Radiographs of the left knee dated 05/05/2017. FINDINGS: Normal visualized distal femur. Normal visualized proximal tibia and fibula. Normal proximal tibiofibular articulation. There is no demonstrated fracture. Normal medial femorotibial compartment. Normal lateral femorotibial compartment. Normal patellofemoral articulation. There is an enthesophyte at the quadriceps tendon insertion onto the patella. There is a soft tissue prominence in the suprapatellar region suggesting a small volume joint effusion. There are atherosclerotic calcifications. RAD/Knee 3 Views IMPRESSION: Degenerative enthesopathy and small joint effusion. Electronically Signed: Goldie Lowery MD at 4:27 EST , Service support ,
== END ==
PROVIDERS: PCP Family Medicine; Referring Provider Family Medicine; Visit Provider Family Medicine
DX: M25.561 Pain in right knee (principal); M25.562 Pain in left knee
CPT/HCPCS: 73562

== ENCOUNTER → 2020-11-03 10:51 | Outpatient (CLI) | payer MEDICARE, OTHER, SELFPAY ==
[2020-02-08 10:29] VITALS: BMI 41.8
--- NOTE | 2020-11-03 10:54 | US_ITS ---
STUDY: THYROID ULTRASOUND REASON FOR EXAM: Male, 75 years old. Nodules. TECHNIQUE: Ultrasound evaluation of the thyroid was performed with real-time and static shi-scale imaging. COMPARISON: October 14, 2019. FINDINGS: RIGHT LOBE: The right lobe of the thyroid gland measures 4.6 x 1.9 x 1.8 cm. There is a homogeneous echotexture. Cystic nodules with calcification superior pole measuring 0.4 x 0.3 x 0.3 cm mid pole measuring 0.5 x 0.5 x 0.4 cm and inferior pole measuring 0.8 x 1.0 x 1.0 cm not significantly changed. LEFT LOBE: The left lobe of the thyroid gland measures 5.0 x 1.4 x 2.0 cm. There is a homogeneous echotexture. Cystic nodules mid pole measuring 0.7 x 0.6 x 0.5 cm with calcification, mid pole measuring 0.6 x 0.4 x 0.6 cm with calcification and inferior pole measuring 0.8 x 0.6 x 0.9 cm not significantly changed. ISTHMUS: The isthmus measures 2 . The regional lymph nodes are normal. US/Thyroid IMPRESSION: Mild thyromegaly left greater than right slightly increased in size on the left since the prior study. Multiple small nodules in both lobes not significantly changed. Electronically Signed: Rakesh Bethea MD at 0:12 EST , Service support ,
== END ==
PROVIDERS: PCP Family Medicine; Referring Provider Family Medicine; Visit Provider Family Medicine
DX: E04.1 Nontoxic single thyroid nodule (principal); I65.29 Occlusion and stenosis of unspecified carotid artery
CPT/HCPCS: 76536

== ENCOUNTER → 2020-11-05 09:58 | Outpatient (CLI) | payer MEDICARE, OTHER, SELFPAY ==
[2020-02-08 10:29] VITALS: BMI 41.8
--- NOTE | 2020-11-05 10:03 | CDU_ITS ---
Reason For Study: stenosis Rt. Velocities/BP Lt. Velocities/BP Prox CCA 72.1/9.5 cm/sec. Prox CCA 86.3/13.9 cm/sec. Mid CCA 74.7/10.8 cm/sec. Mid CCA 88.8/13.9 cm/sec. Dist CCA 86.5/12.1 cm/sec. Dist CCA 102.3/13.9 cm/sec. Prox ICA 70.4/13.9 cm/sec. Prox ICA 70.4/11.4 cm/sec. Mid ICA 79.0/20.0. cm/sec. Mid ICA 61.8/16.3 cm/sec. Dist ICA 86.3/17.6 cm/sec. Dist ICA 70.4/22.5 cm/sec. Rt. ICA/CCA = 1.2. Lt. ICA/CCA = .8. Prox ECA 108.3 cm/sec. Prox ECA 70.4/7.7 cm/sec. Rt. Vert. 56.9/11.4 cm/sec. Right Extracranial There is intimal thickening but no significant atherosclerotic plaque noted in the right common carotid artery. There is heterogeneous, irregular atherosclerotic plaque noted in the right internal carotid artery. There is homogeneous, smooth atherosclerotic plaque noted in the right external carotid artery. Antegrade flow is noted in the right vertebral artery. There is heterogeneous, irregular atherosclerotic plaque noted in the right bulb. Left Extracranial There is intimal thickening but no significant atherosclerotic plaque noted in the left common carotid artery. There is heterogeneous, irregular atherosclerotic plaque noted in the left internal carotid artery. There is homogeneous, smooth atherosclerotic plaque noted in the left external carotid artery. Unable to image left vertebral artery due to pt body habitus and inability to position properly. There is heterogeneous, irregular atherosclerotic plaque noted in the left bulb. Procedure Carotid Duplex [id number]. This is a Carotid Duplex examination using B-mode, color flow and specral Doppler. The study was technically difficult. Interpretation Summary Mild (<50%) stenosis right extracranial internal carotid. Mild (<50%) stenosis left extracranial internal carotid. Flow within the right verterbral artery is antegrade. The left vertebral artery could not be visualized due to the patient's body habitus and positioning issues. Heterogeneous, irregular atherosclerotic plaque is noted in the carotid bulbs bilaterally, which does not appear to be hemodynamically significant. Ordering Physician: Getachew Watson Performed By: Pawan Benson RVT
== END ==
PROVIDERS: PCP Family Medicine; Referring Provider Family Medicine; Visit Provider Family Medicine
DX: I65.23 Occlusion and stenosis of bilateral carotid arteries (principal); E04.1 Nontoxic single thyroid nodule
CPT/HCPCS: 93880

== ENCOUNTER 2021-01-12 12:12 | Outpatient (RCR) | payer MEDICARE, SELFPAY ==
[2020-02-08 10:29] VITALS: BMI 41.8
[2021-01-12] MEDS: COVID-19 VACC, MRNA(PFIZER)/PF 30 MCG/0.3 ML SYRINGE IM (09:08)
[2021-02-02] MEDS: COVID-19 VACC, MRNA(PFIZER)/PF 30 MCG/0.3 ML SYRINGE IM (08:58)
== END 2021-04-13 23:59 ==
LOC: IMMUN 12:12
PROVIDERS: PCP Family Medicine; Referring Provider Family Medicine; Visit Provider Family Medicine
DX: Z23 Encounter for immunization (principal)
CPT/HCPCS: 0001A; 0002A; 91300

== ENCOUNTER → 2021-02-11 07:07 | Outpatient (CLI) | payer MEDICARE, OTHER, SELFPAY ==
[2020-02-08 10:29] VITALS: BMI 41.8
[2021-02-11 10:10] LABS: Absolute Lymphocyte Count 1.49 X10^3/uL (0.83-4.51); Absolute Neutrophil Count 4.9 X10^3/uL (2.0-7.7); Basophil# 0.04 X10^3/uL; Basophil% 0.5 % (0-1); Eosinophil# 0.22 X10^3/uL; Eosinophils% 2.9 % (0-5); Hematocrit 39.1 % (40-54); Hemoglobin 12.7 g/dL (13.0-16.5); Lymphocyte # 1.49 X10^3/ul (4.0); Lymphocyte % 19.9 % (19-41); Mean Corp Hgb Conc 32.5 g/dL (32-36); Mean Corpuscular Hgb 28.3 pg (27.0-32.0); Mean Corpuscular Volume 87.1 fL (80-94); Mean Platelet Vol. 9.7 fl (6.2-12.0); Monocyte# 0.77 X10^3/uL; Monocyte% 10.3 % (0-10); NRBC Flagged by Analyzer 0 % (0-5); Neutrophil # 4.88 X10^3/uL (2.7-7.7); Neutrophil % 65.5 % (47-70); Platelet Count 219 K/mm3 (150-450); RBC Distribution Width CV 14.5 % (11.6-14.6); RBC Distribution Width SD 45.3 fl (35.1-43.9); Red Blood Count 4.49 M/mm3 (4.6-6.2); White Blood Count 7.5 K/mm3 (4.4-11.0)
[2021-02-11 10:28] LABS: Vitamin D,25 Hydroxy 39.8 ng/mL
[2021-02-11 10:31] LABS: AST(SGOT) 25 U/L (15-37); Alanine Aminotransfer ALT/SGPT 53 U/L (16-61); Albumin, Serum 3.8 g/dL (3.2-5.0); Alkaline Phosphatase 57 U/L (45-117); Anion Gap 7 (5-15); BUN 32 mg/dL (7-18); BUN/Creat Ratio 29.1 RATIO (10-20); Calcium,Total 9.1 mg/dL (8.5-10.1); Chloride 101 mmol/L (98-107); Cholesterol 141 mg/dL (200); EST Glomerular Filtration Rate 70 mL/min (>60); Est Glom Filt Rate - Afr Amer 84 mL/min (>60); Globulin 3.9 g/dL (2.2-4.2); Glucose 134 mg/dL (74-106); High Density Lipoprotein 43 mg/dL; Magnesium 2.1 mg/dL (1.6-2.6); Potassium 4.6 mmol/L (3.5-5.1); Protein, Total 7.7 g/dL (6.4-8.2); Sodium Level 134 mmol/L (136-145); Triglycerides 246 mg/dL; Very Low Density Lipoprotein 49 mg/dL (5-40)
[2021-02-11 10:33] LABS: Hemoglobin A1c 6.9 % (3.8-5.6)
[2021-02-12 08:46] LABS: Ferritin 224 ng/mL (26-388); Iron 79 ug/dL (65-175); Iron Binding Capacity,Total 371 ug/dL (250-450); PERCENT IRON SATURATION 21.3 % (15.0-55.0)
[2021-02-12 09:11] LABS: Vitamin B12 323 pg/mL (211-911)
== END ==
PROVIDERS: PCP Family Medicine; Referring Provider Family Medicine; Visit Provider Family Medicine
DX: I10 Essential (primary) hypertension (principal); E78.5 Hyperlipidemia, unspecified; E11.9 Type 2 diabetes mellitus without complications; E83.42 Hypomagnesemia; D64.9 Anemia, unspecified; E55.9 Vitamin D deficiency, unspecified
CPT/HCPCS: 36415; 80053; 80061; 82306; 82607; 82728; 83036; 83540; 83550; 83735; 85025

== ENCOUNTER → 2021-02-24 08:27 | Outpatient (CLI) | payer MEDICARE, OTHER, SELFPAY ==
[2020-02-08 10:29] VITALS: BMI 41.8
[2021-02-24 10:13] LABS: Absolute Lymphocyte Count 1.67 X10^3/uL (0.83-4.51); Absolute Neutrophil Count 4.5 X10^3/uL (2.0-7.7); Basophil# 0.06 X10^3/uL; Basophil% 0.8 % (0-1); Eosinophil# 0.21 X10^3/uL; Eosinophils% 2.9 % (0-5); Hematocrit 42.7 % (40-54); Hemoglobin 13.2 g/dL (13.0-16.5); Lymphocyte # 1.67 X10^3/ul (0.83-4.51); Lymphocyte % 23.1 % (19-41); Mean Corp Hgb Conc 30.9 g/dL (32-36); Mean Corpuscular Hgb 27.7 pg (27.0-32.0); Mean Corpuscular Volume 89.7 fL (80-94); Monocyte# 0.73 X10^3/uL; Monocyte% 10.1 % (0-10); NRBC Flagged by Analyzer 0 % (0-5); Neutrophil # 4.46 X10^3/uL (2.7-7.7); Neutrophil % 61.9 % (47-70); Platelet Count 240 K/mm3 (150-450); RBC Distribution Width CV 14.4 % (11.6-14.6); RBC Distribution Width SD 46.8 fl (35.1-43.9); Red Blood Count 4.76 M/mm3 (4.6-6.2); White Blood Count 7.2 K/mm3 (4.4-11.0)
[2021-02-24 10:22] LABS: Prothrombin Time (Protime)PT. 12.5 SECONDS (11.7-14.9)
[2021-02-24 10:24] LABS: Partial Thromboplast Time 27.1 Seconds (24.1-36.2)
== END ==
PROVIDERS: PCP Family Medicine; Visit Provider Family Medicine
DX: S05.12XA Contusion of eyeball and orbital tissues, left eye, initial encounter (principal); X58.XXXA Exposure to other specified factors, initial encounter; Y93.9 Activity, unspecified; Y92.9 Unspecified place or not applicable; Y99.9 Unspecified external cause status
CPT/HCPCS: 36415; 85025; 85610; 85730

== ENCOUNTER → 2021-03-03 06:29 | Outpatient (CLI) | payer MEDICARE, OTHER, SELFPAY ==
[2020-02-08 10:29] VITALS: BMI 41.8
--- NOTE | 2021-03-03 06:32 | ECHOCS_ITS ---
Reason For Study: SOB Procedure This was a 2D Doppler, Color Flow transthoracic echocardiogram. The study was technically difficult. Contrast injection was performed. Exam performed in department. Left Ventricle Normal LV size. Mild concentric left ventricular hypertrophy. Left ventricular systolic function is normal. The estimated ejection fraction is 65 %. There is evidence of diastolic dysfunction. No regional wall motion abnormalities noted. Right Ventricle Normal RV size. Normal systolic function. Atria Normal left atrium. Normal right atrium. No doppler evidence for ASD. Mitral Valve There is mild mitral annular calcification. Normal mitral valve. Trivial mitral valve insufficiency. Tricuspid Valve Normal tricuspid valve. Trivial tricuspid valve insufficiency. Right ventricular systolic pressure estimated to be 45 mmHg. Aortic Valve Trisinus/trileaflet aortic valve. Severe diffuse aortic valve calcification. Severe aortic stenosis. Pulmonic Valve The pulmonic valve is not well visualized. Great Vessels Normal sized aortic root. Pericardium/Pleural No pericardial effusion. Medication Diluted definity 4ml given slow IV push to enhance endocardial definition. MMode/2D Measurements & Calculations LVIDd: 4.9 cm IVSd: 1.3 cm LVOT diam: 2.0 cm LVIDs: 3.3 cm LVPWd: 1.4 cm RVDd: 2.8 cm FS: 32.6 % LVOT area: 3.1 cm2 Ao root diam: 2.8 cm LAV(MOD-bp): 22.0 ml LVAd ap4: 31.4 cm2 LAV(MOD-bp) Indexed: 8.9 ml/m2 LVLd ap4: 8.9 cm LAV(MOD-sp2): 36.3 ml EDV(MOD-sp4): 92.4 ml LAV(MOD-sp4): 13.4 ml EDV(sp4-el): 93.4 ml LVAs ap4: 17.5 cm2 LVLs ap4: 6.9 cm ESV(MOD-sp4): 37.6 ml ESV(sp4-el): 37.5 ml EF(MOD-sp4): 59.3 % EF(sp4-el): 59.9 % SV(MOD-sp4): 54.8 ml SV(sp4-el): 55.9 ml LA A4 area: 9.1 cm2 LA dimension(2D): 3.9 cm RA A4 area: 12.3 cm2 Time Measurements MV dec time: 0.36 sec Doppler Measurements & Calculations MV E max rik: 73.6 cm/sec Lat Peak E' Rik: 6.4 cm/sec Med Peak E' Rik: 3.9 cm/sec MV A max rik: 121.5 cm/sec E/E' lat: 11.5 E/E' med: 19.0 MV E/A: 0.61 MV V2 max: 142.4 cm/sec MV P1/2t max rik: 113.0 cm/sec Ao V2 max: 480.3 cm/sec MV max P.1 mmHg MV P1/2t: 104.5 msec Ao max P.3 mmHg MV V2 mean: 94.2 cm/sec MV dec slope: 316.7 cm/sec2 Ao V2 mean: 351.5 cm/sec MV mean P.9 mmHg MVA(P1/2t): 2.1 cm2 Ao mean P.5 mmHg MV V2 VTI: 33.0 cm Ao V2 VTI: 93.7 cm MVA(VTI): 2.1 cm2 KOKO(I,D): 0.73 cm2 KOKO(V,D): 0.74 cm2 LV V1 max: 114.6 cm/sec SV(LVOT): 68.5 ml PA V2 max: 143.4 cm/sec LV V1 max P.3 mmHg LV V1 mean P.9 mmHg LV V1 mean: 81.5 cm/sec LV V1 VTI: 22.1 cm TR max rik: 324.1 cm/sec TR max P.0 mmHg ECHO/Echo Complete W/ Contrast Interpretation Summary The study was technically difficult. Contrast injection was performed. Left ventricular systolic function is normal. The estimated ejection fraction is 65 %. Mild concentric left ventricular hypertrophy. There is mild mitral annular calcification. Trivial mitral valve insufficiency. Trivial tricuspid valve insufficiency. Severe aortic stenosis. Right ventricular systolic pressure estimated to be 45 mmHg. There is evidence of diastolic dysfunction. Ordering Physician: Getachew Watson Referring Physician: Getachew Watson Performed By: Yvonne Bearden, RUTH, RVT
--- NOTE | 2021-03-03 17:59 | STRESSREP ---
Stress Test Report Date: 03-03-2021 Procedure: Pharmacologic stress nuclear imaging study Indications: Shortness of breath/dyspnea on exertion; abnormal ECG Consent: Per the patient Procedure: The patient underwent pharmacologic (Regadenoson 0.4mg ) evaluation with a peak heart rate of 106 beats per minute (72%predicted maximal heart rate) and a peak blood pressure of 146/76 mmHg. The baseline ECG demonstrated normal sinus rhythm. The peak pharmacologic ECG demonstrated no obvious ECG changes. There were no cardiac dysrhythmias pretest, during pharmacologic infusion, or recovery. There was no complaint of chest discomfort during pharmacologic infusion or recovery. The examination was discontinued secondary to completion of protocol. Impression: 1. Pharmacologic (Regadenoson) evaluation 2. Peak pharmacologic ECG with no obvious ECG changes. 3. There were no cardiac dysrhythmias pretest, during pharmacologic infusion, or recovery. 4. Nuclear images pending Myocardial perfusion imaging study: Technique: The patient was injected with 14.9 millicuries of technetium 99m Cardiolite and subsequently rest SPECT Cardiolite nuclear imaging was obtained in the horizontal long, vertical long, and short axis views. The patient underwent pharmacologic (Regadenoson) evaluation with a peak heart rate of 106 beats per minute (72% percent predicted maximal heart rate) and a peak blood pressure of 146/76 mmHg. The patient was injected with 44.7 millicuries of technetium 99m Cardiolite and subsequently stress SPECT Cardiolite nuclear imaging was obtained in the horizontal long, vertical long, and short axis views. A gated Cardiolite study at peak stress was obtained. Interpretation: Rest and stress SPECT Cardiolite nuclear imaging status post realignment and normalization demonstrate diminished myocardial perfusion/tracer uptake in portions of the basal to distal inferior and inferior apical segments which appear to be somewhat more prominent following stress in the inferior apical segments. There is end systolic thickening and brightening. The gated Cardiolite study demonstrates myocardial thickening and inward wall motion. The reported LVEF is 65%. Impression: 1. Rest and stress SPECT her nuclear imaging demonstrate myocardial perfusion changes potentially compatible with an area of previous myocardial injury/infarction involving portions of the basal to distal inferior and inferoapical segments with post-rest myocardial perfusion changes appearing compatible with an area of barby-infarct related myocardial ischemia involving the inferior apical segments, however, an element of soft tissue attenuation/artifact cannot necessarily be excluded. 2. The gated Cardiolite study reports an LVEF of 65%. This note was generated with [employer] software. It may contain incorrect words, spelling, and punctuation that were not noted in checking the note before signing.
== END ==
PROVIDERS: PCP Family Medicine; Referring Provider Family Medicine; Visit Provider Family Medicine
DX: R06.02 Shortness of breath (principal); R94.31 Abnormal electrocardiogram [ECG] [EKG]
CPT/HCPCS: 78452; 93017; 93306; A9500; Q9957; A4216; C8929; J2785

== ENCOUNTER → 2021-03-05 15:54 | Outpatient (CLI) | payer MEDICARE, OTHER, SELFPAY ==
[2021-03-05 14:26] VITALS: BMI 41.4
--- NOTE | 2021-03-05 16:06 | RAD_ITS ---
STUDY: X-RAY CHEST REASON FOR EXAM: Male, 75 years old. shortness of breath TECHNIQUE: PA and lateral views of the chest. COMPARISON: 12/15/2018 FINDINGS: There is hyperinflation of the lungs consistent with chronic obstructive lung disease (COPD). There is no demonstrated pleural abnormality. Normal size heart. Normal mediastinum and radha. Normal visualized pulmonary arteries. Normal visualized aortic arch and descending thoracic aorta. Normal visualized thoracic spine. Normal visualized ribs, clavicles, and shoulders. There is no demonstrated abnormality of the visualized soft tissue structures of the upper abdomen. RAD/Chest PA and Lateral IMPRESSION: Emphysema without pneumonia or atelectasis per Electronically Signed: Royal Puente MD at 12:17 EDT Tel , Service support ,
[2021-03-05 17:06] LABS: Absolute Lymphocyte Count 1.73 X10^3/uL (0.83-4.51); Absolute Neutrophil Count 6.4 X10^3/uL (2.0-7.7); Basophil# 0.05 X10^3/uL; Basophil% 0.5 % (0-1); Eosinophil# 0.21 X10^3/uL; Eosinophils% 2.2 % (0-5); Hematocrit 39.9 % (40-54); Hemoglobin 12.7 g/dL (13.0-16.5); Lymphocyte # 1.73 X10^3/ul (0.83-4.51); Lymphocyte % 18.3 % (19-41); Mean Corp Hgb Conc 31.8 g/dL (32-36); Mean Corpuscular Hgb 28.2 pg (27.0-32.0); Mean Corpuscular Volume 88.7 fL (80-94); Monocyte# 0.98 X10^3/uL; Monocyte% 10.4 % (0-10); NRBC Flagged by Analyzer 0 % (0-5); Neutrophil # 6.38 X10^3/uL (2.7-7.7); Neutrophil % 67.4 % (47-70); Platelet Count 258 K/mm3 (150-450); RBC Distribution Width CV 14.2 % (11.6-14.6); RBC Distribution Width SD 45.1 fl (35.1-43.9); White Blood Count 9.5 K/mm3 (4.4-11.0)
[2021-03-05 17:23] LABS: International Normalized Ratio 1.1; Partial Thromboplast Time 25.7 Seconds (24.1-36.2); Prothrombin Time (Protime)PT. 13.8 SECONDS (11.7-14.9)
[2021-03-05 18:42] LABS: Anion Gap 8 (5-15); BUN 42 mg/dL (7-18); BUN/Creat Ratio 31.1 RATIO (10-20); Calcium,Total 9.1 mg/dL (8.5-10.1); Chloride 100 mmol/L (98-107); Creatinine, Serum 1.35 mg/dL (0.70-1.30); EST Glomerular Filtration Rate 55 mL/min (>60); Est Glom Filt Rate - Afr Amer 67 mL/min (>60); Glucose 122 mg/dL (74-106); Potassium 4.4 mmol/L (3.5-5.1); Sodium Level 136 mmol/L (136-145)
== END ==
PROVIDERS: PCP Family Medicine; Referring Provider Internal Medicine Cardiovascular Disease; Visit Provider Internal Medicine Cardiovascular Disease
DX: R06.02 Shortness of breath (principal); I10 Essential (primary) hypertension; E66.01 Morbid (severe) obesity due to excess calories; E11.9 Type 2 diabetes mellitus without complications; E78.5 Hyperlipidemia, unspecified; I65.23 Occlusion and stenosis of bilateral carotid arteries; I35.8 Other nonrheumatic aortic valve disorders; R93.1 Abnormal findings on diagnostic imaging of heart and coronary circulation; R94.39 Abnormal result of other cardiovascular function study
CPT/HCPCS: 36415; 71046; 80048; 85025; 85610; 85730

== ENCOUNTER 2021-03-16 09:01 | Day surgery (SDC) | payer MEDICARE, OTHER, SELFPAY ==
[2021-03-05 14:26] VITALS: BMI 41.4
[2021-03-15 09:42] VITALS: BMI 41.4
--- NOTE | 2021-03-16 07:00 | HP_ITS ---
.HPI HPI History of Present Illness Surgical H&P: Yes Details: This is a 75-year-old white male who presents for outpatient cardiovascular consultation based upon concerns of progressive shortness of breath/dyspnea on exertion with findings of an abnormal pharmacologic stress nuclear imaging study and an abnormal transthoracic echocardiogram superimposed upon a history of hyperlipidemia, hypertension, diabetes mellitus, and a child who is history of bacterial endocarditis treated at [facility] with corticosteroid therapy. The patient does state that when he was approximately 8 years old he was diagnosed with bacterial endocarditis and treated at [facility] with corticosteroid therapy. He does not recall the details of the diagnosis. He did not require any type of surgical intervention. He states that prior to the coronavirus he felt he was doing reasonably well without having obvious symptoms. However since this past year when he has been homebound he feels he has been more short of breath and dyspneic with activity. He originally attributed to diminished functional status. However he has now undergone additional evaluation which included a pharmacologic stress nuclear imaging study and a transthoracic echocardiogram which were felt to be abnormal. His pharmacologic stress nuclear imaging study is as noted below raising concerns about an area of possible previous myocardial injury/infarction involving portions of the basal to distal inferior and inferior apical segments with post-stress myocardial perfusion changes appearing compatible with an area of barby-infarct related myocardial ischemia involving the inferoapical segments although an element of soft tissue attenuation/artifact could not be excluded. The gated LVEF was 65%. The transthoracic echocardiogram suggested findings compatible with a normal left ventricle with an LVEF of 65% with severe aortic valve stenosis based upon his 2D echocardiographic images as well as his Doppler measurements suggesting a peak aortic valve velocity of greater than 4 m/s, and aortic valve mean gradient of approximately 56 mmHg, and aortic valve area of approximately 0.7 cm?. He denies any chest discomfort with his exertional dyspnea. He denies any orthopnea or PND. He states he has always had an element of chronic lower extremity peripheral pitting edema. He has had no near syncope or syncope. He has been on medication for his multiple medical issues. He feels they have been reasonably well controlled. He did have lipid labs on 02-11-2021. At that time his total cholesterol was 141 with an LDL of 49 and an HDL of 43. His triglycerides were 246. He states at one point time in his life his triglycerides were approximately 1200. He had an ECG in the office. He was in sinus rhythm with a nonspecific T wave abnormality. Intake Vital Signs 03/05/21 14:26 Height 5 ft 11 in Weight: 297 lb 6 oz BMI 41.4 BP 112/56 L Blood Pressure Location Lt brachial Position Sitting Respiration 18 Pulse 76 Pulse Source Auscultation Intake Visit Reasons: ABN stress/ ABN echo/Ref. [place] Required: No Accompanied by: Allergies Penicillins Allergy (Verified 03/05/21 14:30) Rash phenobarbital Allergy (Verified 03/05/21 14:30) Hives Sulfa (Sulfonamide Antibiotics) Allergy (Verified 03/05/21 14:30) Other metformin Adverse Reaction (Unknown, Verified 03/05/21 14:30) GI Upset Medications aspirin 81 mg PO DAILY 12/15/18 [History Confirmed 03/05/21] atorvastatin 40 mg PO QHS 12/15/18 [History Confirmed 03/05/21] calcium carbonate 500 mg PO DAILY 12/15/18 [History Confirmed 03/05/21] diltiazem HCl 240 mg PO QHS 12/15/18 [History Confirmed 03/05/21] exenatide microspheres 2 mg SQ QWEEK 12/15/18 [History Confirmed 03/05/21] finasteride 5 mg PO DAILY 12/15/18 [History Confirmed 03/05/21] fish oil-dha-epa 1 ea PO BID 12/15/18 [History Confirmed 03/05/21] furosemide 20 mg PO DAILY 12/15/18 [History Confirmed 03/05/21] imbsfrskkav-uvqmkmldd-mzk C-Mn 1 ea PO BID 12/15/18 [History Confirmed 03/05/21] insulin detemir U-100 100 units SUBCUT BID 12/15/18 [History Confirmed 03/05/21] lisinopril 20 mg PO QHS 12/15/18 [History Confirmed 03/05/21] lisinopril 40 mg PO DAILY 12/15/18 [History Confirmed 03/05/21] losartan 100 mg PO DAILY 12/15/18 [History Confirmed 03/05/21] omeprazole 20 mg PO DAILY 12/15/18 [History Confirmed 03/05/21] chlorthalidone 25 mg tablet 25 mg PO DAILY 03/04/21 [History Confirmed 03/05/21] cholecalciferol (vitamin D3) 50 mcg (2,000 unit) tablet 50 mcg PO DAILY 03/04/21 [History Confirmed 03/05/21] famotidine 20 mg tablet 20 mg PO BID PRN tab 03/04/21 [History Confirmed 03/05/21] fluticasone propionate 50 mcg/actuation nasal spray,suspension 1 spray INTRANASAL DAILY 03/04/21 [History Confirmed 03/05/21] hydrocodone 5 mg-acetaminophen 325 mg tablet 1 tab PO Q6H PRN 03/04/21 [History Confirmed 03/05/21] insulin aspart U-100 100 unit/mL (3 mL) subcutaneous pen 10 unit SUBCUT TID 03/04/21 [History Confirmed 03/05/21] magnesium carb,citrate,oxide 300 mg PO DAILY tab 03/04/21 [History Confirmed 03/05/21] multivitamin 1 tab PO DAILY 03/04/21 [History Confirmed 03/05/21] nitroglycerin 0.4 mg/hr transdermal 24 hour patch 1 patch TRANSDERMAL DAILY 03/04/21 [History Confirmed 03/05/21] prednisone 20 mg tablet 20 mg PO DAILY PRN 03/04/21 [History Confirmed 03/05/21] tamsulosin 0.4 mg capsule 0.8 mg PO BID cap 03/05/21 [History Confirmed 03/05/21] PFSH Medical History Abnormal echocardiogram Abnormal stress test Bilateral carotid artery stenosis Diabetes Essential hypertension GERD (gastroesophageal reflux disease) History of bacterial endocarditis Kidney disease Nonrheumatic aortic sclerosis RACHAEL treated with BiPAP Rheumatic fever with cardiac involvement Thyroid nodule Surgical History History of appendectomy History of cataract surgery History of tonsillectomy Status post trigger finger release Family History Father Myocardial infarction CAD (coronary artery disease) History of coronary artery bypass surgery Social History Smoking Status: Former smoker alcohol intake: current details: occasional substance use type: does not use caffeine: Yes Type: coffee Number of servings: 4 ROS Const Const: Positive for fatigue; Negative for weakness, frequent falls, excessive sweating, weight gain or weight loss Eyes Eyes: Negative for transient loss of vision, blurry vision or change in vision ENT ENT: Positive for balance problems (ambulates with cane); Negative for dizziness Cardio Chest Pain: No Palpitations: No Edema: None Muscle aches with walking: None Resp Respiratory: Positive for SOB with activity (increased ); Negative for SOB at rest GI GI: Negative vomiting or vomiting blood/hematemesis : Negative for hematuria Musc Musc: Positive for joint pain (bilat knees) and balance problems (ambulates with cane); Negative for muscle aches/ myalgia or muscle weakness Skin Skin: Negative non-healing lesions or rash Neuro Neuro: Negative for dizziness, lightheadedness, orthostatic symptoms, frequent falls, weakness or blurry vision Veto Hematologic/Lymphatic: Negative for easy bleeding Endo Endo: Positive for fatigue; Negative for excessive sweating Psych Psych: Negative for anxiety or depression Allergy Allergy/Immunology: Negative for hives and Negative for rash Cardiology Exam Const Appearance: cooperative, healthy appearing, comfortable, no acute distress, well developed and well groomed Nutritional Appearance: obese Orientation: alert, awake and oriented x3 Head Head: normal to inspection, normocephalic and atraumatic Ears: hearing grossly normal bilaterally Nose: external nose normal Face and Sinus: face symmetric Eyes Eyelids: eyelids normal Conjunctivae: conjunctivae normal Pupils: PERRL EOM: EOM intact bilaterally Neck Neck: normal visual inspection and full ROM Carotids: normal carotid upstroke Chest Chest inspection: normal inspection of the chest, symmetric chest movement and normal respiratory effort Auscultation: Bilateral: Clear to Auscultation Cardio Palpation: normal PMI Rate: regular rate Rhythm: regular rhythm Heart sounds: S1 normal, murmur and diminished A2 Murmur: Grade 3/6, high pitched, crescendo, LLSB, apex, LVOT and sternal notch GI GI: normal to inspection, soft, bowel sounds present and obese Neuro General: patient alert, patient awake, patient oriented x3 and moves all extremities Skin Skin: no rashes or lesions noted Extremities Pulses: Normal: Right Radial Pulse and Left Radial Pulse Lower Extremity Edema: Trace: Bilateral Psych Psychological: normal affect Coding Level of Care Code Off vis,new,level 5 Diagnoses Abnormal stress test R94.39 Abnormal echocardiogram R93.1 Nonrheumatic aortic sclerosis I35.8 Dyslipidemia E78.5 Essential hypertension I10 Shortness of breath R06.02 Morbid obesity E66.01 Coding Level of Care Code Off vis,new,level 5 Diagnoses Abnormal stress test R94.39 Abnormal echocardiogram R93.1 Nonrheumatic aortic sclerosis I35.8 Dyslipidemia E78.5 Essential hypertension I10 Shortness of breath R06.02 Morbid obesity E66.01 Supplemental Info Supplemental Information Transthoracic echocardiogram: 03-03-2020 Reason For Study: SOB Procedure This was a 2D Doppler, Color Flow transthoracic echocardiogram. The study was technically difficult. Contrast injection was performed. Exam performed in department. Left Ventricle Normal LV size. Mild concentric left ventricular hypertrophy. Left ventricular systolic function is normal. The estimated ejection fraction is 65 %. There is evidence of diastolic dysfunction. No regional wall motion abnormalities noted. Right Ventricle Normal RV size. Normal systolic function. Atria Normal left atrium. Normal right atrium. No doppler evidence for ASD. Mitral Valve There is mild mitral annular calcification. Normal mitral valve. Trivial mitral valve insufficiency. Tricuspid Valve Normal tricuspid valve. Trivial tricuspid valve insufficiency. Right ventricular systolic pressure estimated to be 45 mmHg. Aortic Valve Trisinus/trileaflet aortic valve. Severe diffuse aortic valve calcification. Severe aortic stenosis. Pulmonic Valve The pulmonic valve is not well visualized. Great Vessels Normal sized aortic root. Pericardium/Pleural No pericardial effusion. Medication Diluted definity 4ml given slow IV push to enhance endocardial definition. MMode/2D Measurements & Calculations LVIDd: 4.9 cm ? IVSd: 1.3 cm? LVOT diam: 2.0 cm LVIDs: 3.3 cm ? LVPWd: 1.4 cm RVDd: 2.8 cm? FS: 32.6 %? LVOT area: 3.1 cm2 ? _ Ao root diam: 2.8 cm? LAV(MOD-bp): 22.0 ml? LVAd ap4: 31.4 cm2 ? LAV(MOD-bp) Indexed: 8.9 ml/m2? LVLd ap4: 8.9 cm ? LAV(MOD-sp2): 36.3 ml ? EDV(MOD- sp4): 92.4 ml ? LAV(MOD-sp4): 13.4 ml ? EDV(sp4- el): 93.4 ml ? LVAs ap4: 17.5 cm2 ? LVLs ap4: 6.9 cm ? ESV(MOD- sp4): 37.6 ml ? ESV(sp4- el): 37.5 ml ? EF(MOD- sp4): 59.3 % ? EF(sp4- el): 59.9 % ? _ SV(MOD-sp4): 54.8 ml? SV(sp4-el): 55.9 ml ? LA A4 area: 9.1 cm2 ? _ LA dimension(2D): 3.9 cm? RA A4 area: 12.3 cm2 Time Measurements MV dec time: 0.36 sec Doppler Measurements & Calculations MV E max rik: 73.6 cm/sec? ? ? Lat Peak E' Rik: 6.4 cm/sec? Med Peak E' Rik: 3.9 cm/sec MV A max rik: 121.5 cm/sec ? ? E/E' lat: 11.5 ? E/E' med: 19.0 MV E/A: 0.61 ? _ MV V2 max: 142.4 cm/sec? MV P1/2t max rik: 113.0 cm/sec ? ? ? Ao V2 max: 480.3 cm/sec MV max P.1 mmHg? MV P1/2t: 104.5 msec ? Ao max P.3 mmHg MV V2 mean: 94.2 cm/sec? MV dec slope: 316.7 cm/sec2? Ao V2 mean: 351.5 cm/sec MV mean P.9 mmHg ? MVA(P1/2t): 2.1 cm2? Ao mean P.5 mmHg MV V2 VTI: 33.0 cm? Ao V2 VTI: 93.7 cm MVA(VTI): 2.1 cm2 ? KOKO(I,D): 0.73 cm2 ? KOKO(V,D): 0.74 cm2 ? _ LV V1 max: 114.6 cm/sec? SV(LVOT): 68.5 ml? PA V2 max: 143.4 cm/sec LV V1 max P.3 mmHg LV V1 mean P.9 mmHg LV V1 mean: 81.5 cm/sec LV V1 VTI: 22.1 cm ? _ TR max rik: 324.1 cm/sec TR max P.0 mmHg ECHO/Echo Complete W/ Contrast Interpretation Summary The study was technically difficult. Contrast injection was performed. ? Left ventricular systolic function is normal. The estimated ejection fraction is 65 %. Mild concentric left ventricular hypertrophy. There is mild mitral annular calcification. Trivial mitral valve insufficiency. Trivial tricuspid valve insufficiency. Severe aortic stenosis. Right ventricular systolic pressure estimated to be 45 mmHg. There is evidence of diastolic dysfunction. Stress Test Report Date: 03-03-2021 Procedure: Pharmacologic stress nuclear imaging study?? Indications: Shortness of breath/dyspnea on exertion; abnormal ECG Consent: Per the patient Procedure: The patient underwent pharmacologic (Regadenoson 0.4mg ) evaluation with a peak heart rate of 106 beats per minute (72%predicted maximal heart rate) and a peak blood pressure of 146/76 mmHg. The baseline ECG demonstrated normal sinus rhythm.? The peak pharmacologic ECG demonstrated no obvious ECG changes. There were no cardiac dysrhythmias pretest, during pharmacologic infusion, or recovery. There was no complaint of chest discomfort during pharmacologic infusion or recovery. The examination was discontinued secondary to completion of protocol. Impression: 1.? Pharmacologic (Regadenoson) evaluation 2.? Peak pharmacologic ECG with no obvious ECG changes. 3.? There were no cardiac dysrhythmias pretest, during pharmacologic infusion, or recovery. 4.? Nuclear images pending Myocardial perfusion imaging study: Technique: The patient was injected with 14.9 millicuries of technetium 99m Cardiolite and subsequently rest SPECT Cardiolite nuclear imaging was obtained in the horizontal long, vertical long, and short axis views. The patient underwent pharmacologic (Regadenoson) evaluation with a peak heart rate of 106 beats per minute (72% percent predicted maximal heart rate) and a peak blood pressure of 146/76 mmHg. The patient was injected with 44.7 millicuries of technetium 99m Cardiolite and subsequently stress SPECT Cardiolite nuclear imaging was obtained in the horizontal long, vertical long, and short axis views.? A gated Cardiolite study at peak stress was obtained. Interpretation: Rest and stress SPECT Cardiolite nuclear imaging status post realignment and normalization demonstrate diminished myocardial perfusion/tracer uptake in portions of the basal to distal inferior and inferior apical segments which appear to be somewhat more prominent following stress in the inferior apical segments.? There is end systolic thickening and brightening.? The gated Cardiolite study demonstrates myocardial thickening and inward wall motion.? The reported LVEF is 65%. Impression: 1.? Rest and stress SPECT her nuclear imaging demonstrate myocardial perfusion changes potentially compatible with an area of previous myocardial injury/infarction involving portions of the basal to distal inferior and inferoapical segments with post-rest myocardial perfusion changes appearing compatible with an area of barby-infarct related myocardial ischemia involving the inferior apical segments, however, an element of soft tissue attenuation/artifact cannot necessarily be excluded. 2.? The gated Cardiolite study reports an LVEF of 65%. Labs: LDL Cholesterol 49 mg/dL (0-130) HDL Cholesterol 43 mg/dL (40-) Triglycerides 246 mg/dL (-199) H VLDL Cholesterol 49 mg/dL (5-40) H Diagnostics: Electrocardiogram Echocardiogram Stress Test NM Stress Test Chest X-Ray Pulmonary: No Data to Display COVID (Procedure Consent) Procedure Criteria Procedure Criteria: Yes Elective The surgeon/proceduralist and patient have discussed in detail the risk of exposure to and/or potential harm posed by the COVID-19 virus with having a surgery/procedure at this time versus the risk of? delaying the surgery/procedure. It is not possible to know either the risk of delaying the surgery or procedure or chance of getting an infection with perfect accuracy, but a joint decision was made between the patient and the surgeon/proceduralist ?to proceed at this time with the scheduled surgery/procedure as indicated on the consent form. Assessment and Plan Assessment and Plan (1) Abnormal stress test: Status: Acute Plan - Dr. Festus Rocha MD: The patient does have an abnormal stress test raising concerns of underlying previous myocardial injury/infarction barby-infarct related myocardial ischemia. However as noted an element of soft tissue attenuation/artifact, especially taking into consideration the patient's body habitus, cannot be excluded. Based upon the patient's cardiovascular risk factors, his symptoms, and his objective findings it was felt the patient should be further evaluated with diagnostic cardiac catheterization. The procedure and risks were discussed with him. He was agreeable to this approach. (2) Abnormal echocardiogram: Status: Acute Plan - Dr. Festus Rocha MD: The patient does have an abnormal transthoracic echocardiogram. Is abnormal with respect to the findings of aortic valve stenosis. (3) Nonrheumatic aortic sclerosis: Status: Acute Plan - Dr. Festus Rocha MD: Based upon the patient's findings it appears he has evidence, by echocardiogram, of severe aortic valve stenosis. This could be a contributing factor to his shortness of breath and dyspnea on exertion. It was felt the patient should undergo evaluation with diagnostic cardiac catheterization to assess his coronary anatomy. This would be part of his evaluation with respect to a preoperative assessment for his aortic valve which could lead to TAVR or surgical based aortic valve replacement. The patient does state that with respect to his aortic valve he would elect to have it evaluated at [facility] with respect to any type of intervention/surgery. (4) Dyslipidemia: Status: Chronic Plan - Dr. Festus Rocha MD: The patient will continue lipid-lowering therapy. (5) Essential hypertension: Status: Acute Plan - Dr. Festus Rocha MD: The patient's blood pressure appears to be reasonably well controlled at this time. We will continue medical management. (6) Shortness of breath: Status: Acute Plan - Dr. Festus Rocha MD: The patient's main symptom is his shortness of breath and dyspnea on exertion. Again this may be secondary to concerns of his underlying body habitus and diminished functional status as well as the possibility of underlying CAD as well as the findings of what appears to be severe aortic valve stenosis. Thus he will undergo evaluation care as noted. (7) Morbid obesity: Status: Chronic Plan - Dr. Festus Rocha MD: Unfortunately the patient is morbidly obese. He does need to continue to care for his multiple medical issues with attempts at bringing his weight under better control. Plan Details Additional Comments: The above was discussed with the patient. He was agreeable to this approach. Thank you for allowing me to participate in the care of your patient. Please don't hesitate to call if any issues arise. This note was generated using a voice recognition system and there may be incorrect words, spelling or punctuation that were not noted when reviewing the office note prior to saving. Follow Up: 3 Months (PF) Addendum: Correction: Transthoracic echocardiogram listed as 03/03/2020 should be listed as 03/03/2021 Otherwise: I have re-examined the patient. There are no clinical changes since date of exam.
[2021-03-16 11:21] LABS: Bedside Glucose 132 mg/dL (70-110)
--- NOTE | 2021-03-16 11:22 | CL.D_ITS ---
Patient Name: HARINDER BORREGO Study Date: 03/16/2021 Performing: Festus Rocha MD Ht: 70.86 inches 180 cm : 1945 Wt: 297.62 lbs 135 kg Age: 75 Gender: male BSA: 2.49 PROCEDURE(S) PERFORMED DC11-AO ROOT ANGIO WITH HEART CATH [id number] CLINICAL PROFILE AND INDICATIONS Indications: Suspected CAD, Valvular Disease, Pre-Operative Evaluation Heart Failure: None Stress/Imaging Date: 03/03/2021tress Test with SPECT MPI: Positive Intermediate Risk Angina Classification Anginal Classification w/in 2 Weeks: Anginal Equivalent Dyspnea CAD Presentations: Other: dyspnea on exertion CONCLUSIONS [place] [employer] Multivessel CAD (non angiographically significant) Aortic Valve: restricted appearing Aortic Valve Insufficiency Moderate RECOMMENDATIONS Risk factor modification Medical therapy [facility] consult for valvular disease: consider TAVR vs. SAVR DESCRIPTION OF PROCEDURE The patient arrived to the procedure lab. The risks and benefits of the procedure as well as a full d escription of our services here and current unavailability of surgical backup were fully explained to the patient and/or their significant other prior to the catheterization. The Timeout was completed, verifying the correct patient and procedure. The patient's procedural site was prepped and draped in the usual fashion. Local anesthetic was given subcutaneously to right radial region with Lidocaine 2% . Using a modified Seldinger technique, arterial access was obtained via the right radial artery, a 6 Fr sheath was inserted. Left Coronary Artery selective angiography was performed in multiple views u sing a 5 Fr. 4.0 [place] catheter. Right Coronary Artery selective angiography was then performed in mu ltiple views using a 5 Fr. JR 4 catheter. Ascending (root) aorta selective angiography was then perfo rmed in single view. Ascending (root) aorta selective angiography was then performed in single view.The arterial sheath was pulled and a TR Band was applied for hemostasis w/13ml air CORONARY ANGIOGRAPHY DOMINANCE: Right Dominant LEFT HEART ASSESSMENT Left Ventricular Ejection Fraction: Not assessed LEFT MAIN: Angiographically normal LEFT ANTERIOR DESCENDING ARTERY: PROX LAD: Mild calcification, Mild luminal irregularities CIRCUMFLEX ARTERY: PROX CIRC: Mild luminal irregularities RIGHT CORONARY ARTERY: MID RCA: Mild luminal irregularities VALVE FINDINGS: Aortic Valve Insufficiency: Grade 2 restricted appearing AORTIC ROOT: Angiographically normal COMPLICATIONS No Complications PROCEDURE MEDICATIONS Versed 1 mg IV Fentanyl 50 mcg IV Oxygen: 2 L/min via nasal cannula Heparin diluted in 23cc Heparinized saline. Patient given 10cc IA of this solution. 03/16/2021 10:24: 59 Verapamil 2.5mg, Ntg 100mcgs, 2000 units of Heparin diluted in 23cc Heparinized saline. Patient give n 10cc IA of this solution. 03/16/2021 10:24:59 SUMMARY OF HEMODYNAMIC DATA Time AIR REST ECG 09:26:21 AO 84/58 (68) SA 10:35:40 Signed By Festus Rocha MD On 03/16/2021 11:21:23 AM Festus Rocha MD
== END 2021-03-16 13:00 | disposition home or self-care (01) ==
LOC: CLSP 09:03
PROVIDERS: PCP Family Medicine; Referring Provider Internal Medicine Cardiovascular Disease; Visit Provider Internal Medicine Cardiovascular Disease
DX: I25.10 Atherosclerotic heart disease of native coronary artery without angina pectoris (principal); I35.8 Other nonrheumatic aortic valve disorders; I10 Essential (primary) hypertension; E11.9 Type 2 diabetes mellitus without complications; E66.01 Morbid (severe) obesity due to excess calories; Z68.41 Body mass index [BMI] 40.0-44.9, adult; E78.5 Hyperlipidemia, unspecified; I65.23 Occlusion and stenosis of bilateral carotid arteries; Z79.4 Long term (current) use of insulin; Z79.82 Long term (current) use of aspirin; Z79.899 Other long term (current) drug therapy; Z87.891 Personal history of nicotine dependence
CPT/HCPCS: 82962; 93454; 93567; 99152; 99153; J7040; Q9967; C1769; C1894

== ENCOUNTER → 2021-04-01 08:29 | Outpatient (CLI) | payer MEDICARE, OTHER, SELFPAY ==
[2021-03-15 09:42] VITALS: BMI 41.4
--- NOTE | 2021-04-01 14:29 | PFTCOMP_ITS ---
COMPLETE PULMONARY FUNCTION TEST INTERPRETATION Brief HPI: Patient is a 75 year old male, currently under the care of Dr. Watson, who presents to [facility] for complete pulmonary function tests secondary to diagnosis of dyspnea. Respiratory therapist reports good effort and reproducible results. Interpretation: Forced expiration spirometry shows a moderately severe large airways obstructive ventilatory defect with an FEV1 of 53% predicted. There is no significant bronchodilator response by strict ATS criteria. Spirograms are of good quality and plateau slowly, indicating slowly emptying areas of the lungs. The respiratory flow volume loop shows decreased expiratory flow rates at all lung volumes consistent with airway obstruction. Lung volumes by body plethysmography show an elevated total lung capacity at 12.77 L, 197% predicted. FRC and RV are elevated out of proportion. Lung volume measurements are consistent with hyperinflation and air-trapping. Diffusion capacity by carbon monoxide is a decreased at 44% predicted. The airway resistance is normal. No previous pulmonary function tests were available for review. Impression: Irreversible moderately severe large airways obstructive ventilatory defect with a symmetric reduction diffusing capacity, resulting in air trapping with hyperinflation, and a pattern consistent with advanced COPD.
== END ==
PROVIDERS: PCP Family Medicine; Referring Provider Family Medicine; Visit Provider Family Medicine
DX: R06.02 Shortness of breath (principal)
CPT/HCPCS: 94060; 94726; 94729

== ENCOUNTER → 2021-05-20 07:19 | Outpatient (CLI) | payer MEDICARE, OTHER, SELFPAY ==
[2021-04-08 16:07] VITALS: BMI 42.3
[2021-05-20 10:10] LABS: Protein, Urine (Random) 8.7 mg/dL (<11.9); Protein:Creat Ratio 343 mg/g CRE (0-200)
[2021-05-20 11:18] LABS: Anion Gap 12 (5-15); BUN 36 mg/dL (7-18); BUN/Creat Ratio 26.5 RATIO (10-20); Calcium,Total 9.7 mg/dL (8.5-10.1); Chloride 100 mmol/L (98-107); Creatinine, Serum 1.36 mg/dL (0.70-1.30); EST Glomerular Filtration Rate 55 mL/min (>60); Est Glom Filt Rate - Afr Amer 66 mL/min (>60); Glucose 302 mg/dL (74-106); Potassium 4.2 mmol/L (3.5-5.1); Sodium Level 136 mmol/L (136-145)
== END ==
PROVIDERS: PCP Family Medicine; Referring Provider Internal Medicine Nephrology; Visit Provider Internal Medicine Nephrology
DX: N18.2 Chronic kidney disease, stage 2 (mild) (principal)
CPT/HCPCS: 36415; 80048; 82570; 84156

== ENCOUNTER → 2021-05-21 12:45 | Outpatient (CLI) | payer MEDICARE, OTHER, SELFPAY ==
[2021-04-08 16:07] VITALS: BMI 42.3
--- NOTE | 2021-05-21 13:00 | CT_ITS ---
STUDY: LOW DOSE CT LUNG CANCER SCREENING REASON FOR EXAM: Male, 75 years old. TOBACCO USE. Patient smoked 2 packs per day for 20 years. RADIATION DOSAGE (If Supplied By Facility): CTDIvol = ( 4.02 ) mGy, DLP = ( 142.45 ) mGycm TECHNIQUE: No contrast was administered. Low dose technique was utilized (average mAS-38 and kVp 120). 1.25 mm axial source images with a slice interval of 1.25-mm were reconstructed in lung windows. 2.5 mm axial source images with a slice interval of 2.5-mm were reconstructed in lung windows. 5.0 mm axial source images with a slice interval of 5.0-mm were reconstructed in soft tissue windows. Nodule measured using lung windows on PACS and/or independent workstation with automated measurement of minimum and maximum diameter. Nodule measurement reported as average diameter rounded to the nearest whole number. Growth is defined as an increase ins size of greater than 1.5 mm. COMPARISON: None. NODULES: No suspicious nodules are seen. Emphysema: Mild degree of emphysematous changes. Mild degree of increased markings at the lung bases as well as in the right middle lobe suggestive of scarring. Endobronchial lesion: None Aorta: Mild degree of atherosclerotic calcification of the aortic arch. Coronary arteries: Coronary artery calcification. Heart: Unremarkable Pulmonary artery: Unremarkable Mediastinal nodes: Small mediastinal lymph nodes Other chest and abdominal findings: Degenerative changes of the dorsal spine. CT/Low Dose CT Lung Screening IMPRESSION: Lung-RADS category 2 - Continue annual screening with LDCT in 12 months. IMPORTANT NOTES FOR USE: ACR Lung-RADS Version 1.1 Assessment Categories Release Date: 2018 Category: Coded 0-4 bases on nodule(s) with highest degree of suspicion. Negative screen is defined as categories 1 and 2; a positive screen is defined as categories 3 and 4. Category 3 and 4A nodules that are unchanged on interval CT should be coded as category 2, and individuals returned to screening in 12 months. Category 4X: Category 3 or 4 nodules with additional imaging findings that increase the suspicion of lung cancer, such as spiculation, GGN that doubles in size in 1 year, enlarged lymph notes, etc. Category Modifiers: S (significant finding unrelated to lung cancer) Electronically Signed: Stanley Mcdonnell MD at 14:14 EDT , Service support ,
== END ==
PROVIDERS: PCP Family Medicine; Referring Provider Internal Medicine Pulmonary Disease; Visit Provider Internal Medicine Pulmonary Disease
DX: Z87.891 Personal history of nicotine dependence (principal)
CPT/HCPCS: 71271